=== PATIENT | female | born 1970 | race Caucasian/White ===

== ENCOUNTER 2017-09-30 09:20 | Emergency (ER) | payer SELFPAY ==
[~2017-09-30] VITALS: Ht 172.7 cm; Wt 69.1 kg
[~2017-09-30 09:20] MED LIST: AMITRIPTYLINE H10 M1 PO; AMOXICILLIN 8751 TAB PO; ATARAX 10MG10 MG/TAB PO; ATARAX 25MG25 MG/TAB PO; CEPHALEXIN500 M1 PO; CYMBALTA 60MG60 MG PO; DAZIDOX10 MG PO; FLEXERIL10 MG PO; HCTZ 25MG25 MG PO; KLONOPIN2 MG PO; LEXAPRO 10MG10 MG PO; LORTAB 10/500 51 TAB PO; METOPROLOL SUCC25 MG PO; MOTRIN 800800 MG/TAB PO; NORCO 325 MG-101 TAB PO; NORCO 325 MG-7.1 TAB PO; PERCOCET 325 MG1 TA2 PO; PERCOCET 500 MG1 TAB PO; PHENERGAN 25 TA25 MG PO; TOPROL XL25 MG PO; XANAX .25M0.25 MG/TA PO; XANAX1 MG PO; XANAX2 MG PO
[2017-09-30 09:26] VITALS: TEMP 98
[2017-09-30] MEDS ORDERED: ADVIL200 MG PO (09:37)
[2017-09-30 10:24] LABS: SALICYLATE 21.2 mg/dL
[2017-09-30 10:25] LABS: ACETAMINOPHEN < 10 ug/mL (10-30)
[2017-09-30 12:46] VITALS: BP 133/87; PULSE 80
[2017-09-30] MEDS ORDERED: AMOXICILLIN 50500 MG PO (12:56)
== END 2017-09-30 13:05 | disposition home or self-care (01) ==
LOC: COL.ER 09:20
PROVIDERS: Physician Assistant
DX: K08.89 Other specified disorders of teeth and supporting structures (principal)